=== PATIENT | female | born 1950 | race Hispanic/Latino ===

== ENCOUNTER 2018-05-25 12:35 | Emergency (ER) | payer MEDICARE, OTHER ==
[~2018-05-25] VITALS: Ht 157.5 cm; Wt 67.1 kg
[~2018-05-25 12:35] MED LIST: LISINOPRIL-HCT1 EACH PO; METFORMIN HCL500 MG PO; TOPROL XL25 MG PO; TRICOR145 MG PO; ULTRAM50 MG PO
[2018-05-25] MEDS ORDERED: MORPHINE SULFATE INJ 4 MG/ML INJ IV STA (12:53)
[2018-05-25] MEDS ORDERED: ONDANSETRON HCL INJ 2 MG/ML VIAL IV STA (12:53)
[2018-05-25] MEDS ORDERED: SODIUM CHLORIDE 0.9% 1000ML 1,000 ML IV STA (12:53)
[2018-05-25 13:44] LABS: BASOPHILS # (AUTO) 0.1 (0.0-0.1); BASOPHILS % 0.7 % (0.0-1.0); EOSINOPHILS # (AUTO) 0.1 (0.0-0.4); EOSINOPHILS % 0.8 % (0.0-6.0); HEMATOCRIT 38.8 % (34.2-44.1); HEMOGLOBIN 13.6 g/dL (12.0-16.0); LYMPHOCYTES # (AUTO) 2.2 (1.0-3.2); MEAN CORPUSCULAR HEMOGLOBIN 30.2 pg (28-32); MEAN CORPUSCULAR HGB CONC 35.1 g/dL (31-35); MEAN CORPUSCULAR VOLUME 86.2 fL (81-99); MONOCYTES # (AUTO) 0.4 (0.2-0.8); MONOCYTES % 6.1 % (4.4-11.3); NEUTROPHILS # (AUTO) 4.3 (2.1-6.9); NEUTROPHILS % 61.1 % (38.7-80.0); PLATELET COUNT 226 x10e3/uL (140-360)
[2018-05-25 14:07] LABS: ALANINE AMINOTRANSFERASE 16 IU/L (0-55); ALBUMIN 4.2 g/dL (3.5-5.0); ALBUMIN/GLOBULIN RATIO 1.2 (0.8-2.0); ALKALINE PHOSPHATASE 55 IU/L (40-150); ANION GAP 14.8 mmol/L (8-16); BLOOD UREA NITROGEN 10 mg/dL (7-26); BUN/CREATININE RATIO 13 (6-25); CALCIUM 9.6 mg/dL (8.4-10.2); CARBON DIOXIDE 26 mmol/L (22-29); CHLORIDE 102 mmol/L (98-107); CREATINE KINASE 36 IU/L (29-168); CREATININE, SERUM 0.78 mg/dL (0.57-1.11); EST GLOMERULAR FILTRATION RATE > 60 ML/MIN (60-); GLUCOSE 164 mg/dL (74-118); LIPASE 120 U/L (8-78); POTASSIUM 3.8 mmol/L (3.5-5.1); SODIUM 139 mmol/L (136-145)
== END 2018-05-25 15:42 | disposition left against medical advice (07) ==
LOC: FSED 12:35 → ER 15:42
DX: R10.11 Right upper quadrant pain (principal); R11.2 Nausea with vomiting, unspecified
CPT/HCPCS: 36415; 80053; 82550; 82553; 83605; 83690; 84484; 85025; 99283

== ENCOUNTER 2021-07-31 19:16 | Inpatient (IN) | payer MEDICARE, OTHER ==
[~2021-07-31] VITALS: Ht 167.6 cm; Wt 74.8 kg
[2021-07-31] MEDS ORDERED: DEXAMETHASONE SOD PHOS 10 MG/1 ML VIAL IV ONE (19:30)
[2021-07-31 19:38] LABS: BASOPHILS % 0.3 % (0.0-1.0); EOSINOPHILS % 0.3 % (0.0-6.0); HEMATOCRIT 33.7 % (34.2-44.1); HEMOGLOBIN 11.4 g/dL (12.0-16.0); LYMPHOCYTES # (AUTO) 1.2 (1.0-3.2); LYMPHOCYTES % 17.1 % (18.0-39.1); MEAN CORPUSCULAR HEMOGLOBIN 29.5 pg (28-32); MEAN CORPUSCULAR HGB CONC 33.8 g/dL (31-35); MEAN CORPUSCULAR VOLUME 87.3 fL (81-99); MONOCYTES # (AUTO) 0.4 (0.2-0.8); MONOCYTES % 5.8 % (4.4-11.3); NEUTROPHILS # (AUTO) 5.2 (2.1-6.9); NEUTROPHILS % 75.9 % (38.7-80.0); PLATELET COUNT 426 x10e3/uL (140-360); RED BLOOD COUNT 3.86 x10e6/uL (3.6-5.1); RED CELL DISTRIBUTION WIDTH 13.4 % (11.7-14.4)
[2021-07-31 19:58] LABS: ALANINE AMINOTRANSFERASE 21 IU/L (0-55); ALBUMIN 2.6 g/dL (3.5-5.0); ALBUMIN/GLOBULIN RATIO 0.6 (0.8-2.0); ALKALINE PHOSPHATASE 61 IU/L (40-150); BLOOD UREA NITROGEN 13 mg/dL (7-26); BUN/CREATININE RATIO 20 (6-25); CALCIUM 8.2 mg/dL (8.4-10.2); CARBON DIOXIDE 23 mmol/L (22-29); CHLORIDE 105 mmol/L (98-107); CREATINE KINASE 18 IU/L (29-168); CREATININE, SERUM 0.65 mg/dL (0.57-1.11); EST GLOMERULAR FILTRATION RATE 90 ML/MIN (60-); GLUCOSE 106 mg/dL (74-118); SODIUM 140 mmol/L (136-145)
[2021-07-31] MEDS ORDERED: TRAMADOL HCL 50 MG TAB PO PRN (21:00)
[2021-07-31] MEDS ORDERED: POTASSIUM CHLORIDE 10MEQ EA PO ONE (21:00)
[2021-07-31] MEDS ORDERED: DEXTROSE 50% SYRINGE 50 ML IV PRN (21:00)
[2021-07-31] MEDS ORDERED: ACETAMINOPHEN 325 MG TAB PO PRN (21:00)
[2021-07-31] MEDS ORDERED: ONDANSETRON HCL INJ 2MG/ML 2ML 2 MG/ML VIAL IV PRN (21:00)
[2021-07-31] MEDS ORDERED: ALBUTEROL SULFATE HFA 8GM INHALATION AEROSOL INH PRN (21:00)
[2021-07-31] MEDS ORDERED: CLONIDINE HCL 0.1 MG TAB PO PRN (21:00)
[2021-07-31 21:30] VITALS: BP 140/66
[2021-07-31 21:36] VITALS: BP 140/66
[2021-07-31] MEDS: INSULIN REGULAR, HUMAN 100 UNIT/1 ML SQ SCH (21:36)
[2021-08-01] VITALS (8 sets, daily range): BP systolic 127–157; BP diastolic 66–73
[2021-08-01 05:00] LABS: HEMATOCRIT 33.1 % (34.2-44.1); HEMOGLOBIN 11.2 g/dL (12.0-16.0); LYMPHOCYTES # (AUTO) 0.3 (1.0-3.2); LYMPHOCYTES % 9.4 % (18.0-39.1); MEAN CORPUSCULAR HEMOGLOBIN 29.5 pg (28-32); MEAN CORPUSCULAR HGB CONC 33.8 g/dL (31-35); MEAN CORPUSCULAR VOLUME 87.1 fL (81-99); MONOCYTES # (AUTO) 0.1 (0.2-0.8); MONOCYTES % 1.8 % (4.4-11.3); NEUTROPHILS % 88.2 % (38.7-80.0); PLATELET COUNT 431 x10e3/uL (140-360); RED CELL DISTRIBUTION WIDTH 13.4 % (11.7-14.4)
[2021-08-01 05:34] LABS: ALBUMIN 2.5 g/dL (3.5-5.0); ALBUMIN/GLOBULIN RATIO 0.6 (0.8-2.0); ANION GAP 12.6 mmol/L (8-16); CALCIUM 8.6 mg/dL (8.4-10.2); CREATININE, SERUM 0.62 mg/dL (0.57-1.11); POTASSIUM 4.6 mmol/L (3.5-5.1)
[2021-08-01 05:47] LABS: CREATINE KINASE 15 IU/L (29-168)
[2021-08-01] MEDS: INSULIN REGULAR, HUMAN 100 UNIT/1 ML SQ SCH ×4 (07:30→21:00)
[2021-08-01] MEDS ORDERED: LACTATED RINGER'S 1,000 ML INJ ONE (08:45)
[2021-08-01] MEDS ORDERED: REMDESIVIR 200MG 200 MG in SODIUM CHLORIDE 0.9% 100 ML IV ONE (08:45)
[2021-08-01] MEDS: LISINOPRIL 20 MG TAB PO SCH (08:59)
[2021-08-01] MEDS: FENOFIBRATE 145 MG TAB PO SCH (08:59)
[2021-08-01] MEDS: CEFTRIAXONE 1 GM in SODIUM CHLORIDE 0.9% 50ML 50 ML IV SCH (08:59)
[2021-08-01] MEDS: HYDROCHLOROTHIAZIDE 25 MG TAB PO SCH (08:59)
[2021-08-01 12:08] LABS: LYMPHOCYTES % (MANUAL) 9 % (19-48); MONOCYTES % (MANUAL) 1 % (3.4-9.0); NEUTROPHILS % (MANUAL) 90 % (40-74)
[2021-08-01 12:10] LABS: PLATELET ESTIMATE SLIGHTLY INCREASED; PLATELET MORPHOLOGY COMMENT FEW LARGE; RBC MORPHOLOGY COMMENT NORMAL
[2021-08-01] MEDS: ENOXAPARIN SOD INJ 40 MG/0.4 ML SYR SC SCH (16:18)
[2021-08-01] MEDS: FAMOTIDINE 20 MG TAB PO SCH (18:29)
[2021-08-01] MEDS: INSULIN GLARGINE 100 UNITS/ML VIAL SQ SCH (21:00)
[2021-08-01] MEDS: DEXAMETHASONE SOD PHOS 10 MG/1 ML VIAL IV SCH (21:14)
[2021-08-02] VITALS (11 sets, daily range): BP systolic 132–162; BP diastolic 61–87
[2021-08-02 05:36] LABS: BASOPHILS % 0.1 % (0.0-1.0); HEMATOCRIT 32.9 % (34.2-44.1); HEMOGLOBIN 11.2 g/dL (12.0-16.0); LYMPHOCYTES # (AUTO) 0.6 (1.0-3.2); LYMPHOCYTES % 7.5 % (18.0-39.1); MEAN CORPUSCULAR HEMOGLOBIN 29.6 pg (28-32); MONOCYTES # (AUTO) 0.2 (0.2-0.8); MONOCYTES % 2.9 % (4.4-11.3); NEUTROPHILS # (AUTO) 7.2 (2.1-6.9); NEUTROPHILS % 89.1 % (38.7-80.0); PLATELET COUNT 495 x10e3/uL (140-360); RED BLOOD COUNT 3.78 x10e6/uL (3.6-5.1); RED CELL DISTRIBUTION WIDTH 13.2 % (11.7-14.4)
[2021-08-02 05:56] LABS: ALBUMIN 2.5 g/dL (3.5-5.0); ALBUMIN/GLOBULIN RATIO 0.6 (0.8-2.0); ANION GAP 14.2 mmol/L (8-16); CALCIUM 8.7 mg/dL (8.4-10.2); CREATININE, SERUM 0.66 mg/dL (0.57-1.11); POTASSIUM 4.2 mmol/L (3.5-5.1)
[2021-08-02 07:04] LABS: CREATINE KINASE 25 IU/L (29-168)
[2021-08-02] MEDS: INSULIN REGULAR, HUMAN 100 UNIT/1 ML SQ SCH ×4 (08:30→21:00)
[2021-08-02] MEDS: FAMOTIDINE 20 MG TAB PO SCH ×2 (08:30→17:41)
[2021-08-02] MEDS: CEFTRIAXONE 1 GM in SODIUM CHLORIDE 0.9% 50ML 50 ML IV SCH (09:19)
[2021-08-02] MEDS: HYDROCHLOROTHIAZIDE 25 MG TAB PO SCH (09:19)
[2021-08-02] MEDS: LISINOPRIL 20 MG TAB PO SCH (09:20)
[2021-08-02] MEDS: FENOFIBRATE 145 MG TAB PO SCH (09:20)
[2021-08-02] MEDS: REMDESIVIR 100MG 100 MG in SODIUM CHLORIDE 0.9% 100 ML IV SCH (13:44)
[2021-08-02] MEDS: ENOXAPARIN SOD INJ 40 MG/0.4 ML SYR SC SCH (17:42)
[2021-08-02] MEDS: INSULIN GLARGINE 100 UNITS/ML VIAL SQ SCH (21:00)
[2021-08-02] MEDS: DEXAMETHASONE SOD PHOS 10 MG/1 ML VIAL IV SCH (21:27)
[2021-08-03] VITALS (8 sets, daily range): BP systolic 124–138; BP diastolic 56–73
[2021-08-03] MEDS: INSULIN REGULAR, HUMAN 100 UNIT/1 ML SQ SCH ×4 (08:00→21:00)
[2021-08-03] MEDS: FAMOTIDINE 20 MG TAB PO SCH ×2 (09:11→17:17)
[2021-08-03] MEDS: FENOFIBRATE 145 MG TAB PO SCH (09:12)
[2021-08-03] MEDS: LISINOPRIL 20 MG TAB PO SCH (09:12)
[2021-08-03] MEDS: HYDROCHLOROTHIAZIDE 25 MG TAB PO SCH (09:12)
[2021-08-03] MEDS: CEFTRIAXONE 1 GM in SODIUM CHLORIDE 0.9% 50ML 50 ML IV SCH (09:12)
[2021-08-03] MEDS ORDERED: SODIUM CHLORIDE IV ONE (11:30)
[2021-08-03] MEDS ORDERED: MULTIVITAMINS IV ONE (11:30)
[2021-08-03] MEDS: REMDESIVIR 100MG 100 MG in SODIUM CHLORIDE 0.9% 100 ML IV SCH (14:37)
[2021-08-03] MEDS: ENOXAPARIN SOD INJ 40 MG/0.4 ML SYR SC SCH (17:16)
[2021-08-03] MEDS: ASCORBIC ACID 500 MG TAB PO SCH (17:16)
[2021-08-03] MEDS: AZITHROMYCIN 250 MG TAB PO SCH (17:16)
[2021-08-03] MEDS: INSULIN GLARGINE 100 UNITS/ML VIAL SQ SCH (21:00)
[2021-08-03] MEDS: DEXAMETHASONE SOD PHOS 10 MG/1 ML VIAL IV SCH (21:00)
[2021-08-04] VITALS (8 sets, daily range): BP systolic 102–133; BP diastolic 45–70
[2021-08-04] MEDS: INSULIN REGULAR, HUMAN 100 UNIT/1 ML SQ SCH ×4 (09:04→21:00)
[2021-08-04] MEDS: FAMOTIDINE 20 MG TAB PO SCH ×2 (09:13→16:35)
[2021-08-04] MEDS: CEFTRIAXONE 1 GM in SODIUM CHLORIDE 0.9% 50ML 50 ML IV SCH (09:13)
[2021-08-04] MEDS: ASCORBIC ACID 500 MG TAB PO SCH ×2 (09:14→16:35)
[2021-08-04] MEDS: LISINOPRIL 20 MG TAB PO SCH (09:14)
[2021-08-04] MEDS: HYDROCHLOROTHIAZIDE 25 MG TAB PO SCH (09:14)
[2021-08-04] MEDS: FENOFIBRATE 145 MG TAB PO SCH (09:14)
[2021-08-04] MEDS: REMDESIVIR 100MG 100 MG in SODIUM CHLORIDE 0.9% 100 ML IV SCH (13:06)
[2021-08-04] MEDS: AZITHROMYCIN 250 MG TAB PO SCH (16:35)
[2021-08-04] MEDS: ENOXAPARIN SOD INJ 40 MG/0.4 ML SYR SC SCH (16:36)
[2021-08-04] MEDS: DEXAMETHASONE SOD PHOS 10 MG/1 ML VIAL IV SCH (21:00)
[2021-08-04] MEDS: INSULIN GLARGINE 100 UNITS/ML VIAL SQ SCH (21:00)
[2021-08-05] VITALS: BP 127/65
[2021-08-05 04:00] VITALS: BP 100/54
[2021-08-05] MEDS ORDERED: ONDANSETRON HCL 4 MG ORAL DISINTEGRATING TAB PO PRN (07:00)
[2021-08-05 07:58] VITALS: BP 102/45
[2021-08-05 08:16] VITALS: BP 124/84
[2021-08-05] MEDS: HYDROCHLOROTHIAZIDE 25 MG TAB PO SCH (09:04)
[2021-08-05] MEDS: CEFTRIAXONE 1 GM in SODIUM CHLORIDE 0.9% 50ML 50 ML IV SCH (09:04)
[2021-08-05] MEDS: FAMOTIDINE 20 MG TAB PO SCH (09:04)
[2021-08-05] MEDS: ASCORBIC ACID 500 MG TAB PO SCH (09:05)
[2021-08-05] MEDS: FENOFIBRATE 145 MG TAB PO SCH (09:05)
[2021-08-05] MEDS: LISINOPRIL 20 MG TAB PO SCH (09:05)
[2021-08-05] MEDS: INSULIN REGULAR, HUMAN 100 UNIT/1 ML SQ SCH ×2 (09:47→12:34)
[2021-08-05 11:35] VITALS: BP 127/62
[2021-08-05] MEDS ORDERED: ASCORBIC ACID500 MG PO (12:33)
[2021-08-05] MEDS ORDERED: DECADRON4 M1 PO (12:33)
[2021-08-05] MEDS: REMDESIVIR 100MG 100 MG in SODIUM CHLORIDE 0.9% 100 ML IV SCH (12:41)
[2021-08-06] MEDS ORDERED: DEXAMETHASONE 4 MG TAB PO SCH (09:00)
== END 2021-08-05 16:05 | disposition home or self-care (01) | DRG 177 ==
LOC: ER 19:21 → ERHOLD 20:47 → MED/SURG2 21:31
PROVIDERS: ADMIT Internal Medicine; ATTEND Internal Medicine
PROC: 8E0ZXY6 Isolation (ICD-10-PCS; principal; 2021-07-31)
PROC: XW043E5 Introduction of Remdesivir Anti-infective into Central Vein, Percutaneous Approach, New Technology Group 5 (ICD-10-PCS; 2021-08-01)
DX: U07.1 COVID-19 (principal); J12.82 Pneumonia due to coronavirus disease 2019; J96.01 Acute respiratory failure with hypoxia; E11.9 Type 2 diabetes mellitus without complications; I10 Essential (primary) hypertension; D64.9 Anemia, unspecified; E11.65 Type 2 diabetes mellitus with hyperglycemia; E78.00 Pure hypercholesterolemia, unspecified; K29.70 Gastritis, unspecified, without bleeding
CPT/HCPCS: 36415; 71045; 80053; 82550; 82553; 82948; 83036; 83880; 84484; 85025; 87040; 93005; 94799; 96372; 99251; 99284; J0456; J0696; J1100; J1650; J7040; J7050; J7121; U0002

== ENCOUNTER 2025-06-10 10:25 | Emergency (ER) | payer MEDICARE, OTHER ==
[~2025-06-10] VITALS: Ht 154.9 cm; Wt 65.8 kg
[~2025-06-10 10:25] MED LIST changes: +ASCORBIC ACID500 MG PO; +DECADRON4 M1 PO
[2025-06-10 10:38] VITALS: TEMP 98.2
[2025-06-10] MEDS: KETOROLAC TROMETHAMINE 30 MG/ML VIAL IM STA (11:04)
[2025-06-10] MEDS ORDERED: ULTRAM 50MG50 MG PO ×2 (11:59→12:01)
[2025-06-10 12:23] VITALS: PULSE 87; RESP 18
[2025-06-10 12:25] VITALS: BP 138/74; PULSE 87; RESP 18; O2SAT 99
== END 2025-06-10 12:20 | disposition home or self-care (01) ==
LOC: ER 10:39
DX: M25.562 Pain in left knee (principal); Y93.01 Activity, walking, marching and hiking; I10 Essential (primary) hypertension; E11.9 Type 2 diabetes mellitus without complications; E78.5 Hyperlipidemia, unspecified
CPT/HCPCS: 73562; 99283; J1885

== ENCOUNTER 2025-06-12 08:57 | Emergency (ER) | payer MEDICARE ==
[~2025-06-12] VITALS: Ht 154.9 cm; Wt 65.8 kg
[~2025-06-12 08:57] MED LIST changes: +ULTRAM 50MG50 MG PO
[2025-06-12 09:11] VITALS: TEMP 97.7
[2025-06-12] MEDS ORDERED: HYDROCODONE/APAP 5MG-325MG TAB PO ONE (09:45)
[2025-06-12] MEDS: ONDANSETRON HCL 4 MG ORAL DISINTEGRATING TAB PO ONE (10:20)
[2025-06-12] MEDS: KETOROLAC TROMETHAMINE 30 MG/ML VIAL IM STA (10:20)
[2025-06-12 11:40] VITALS: PULSE 71; RESP 18; O2SAT 100
== END 2025-06-12 11:47 | disposition home or self-care (01) ==
LOC: ER 09:04
DX: M54.6 Pain in thoracic spine (principal); S20.221A Contusion of right back wall of thorax, initial encounter; W20.8XXA Other cause of strike by thrown, projected or falling object, initial encounter; Y93.01 Activity, walking, marching and hiking; Y92.89 Other specified places as the place of occurrence of the external cause; M25.562 Pain in left knee; I10 Essential (primary) hypertension; E11.9 Type 2 diabetes mellitus without complications; E78.5 Hyperlipidemia, unspecified
CPT/HCPCS: 71101; 73010; 99283; J1885; Q0162